=== PATIENT | female | born 1990 | race Caucasian/White ===

== ENCOUNTER 2017-03-14 20:43 | Inpatient (IN) | payer OTHER ==
[2017-03-14 21:12] VITALS: BMI 47.9
[2017-03-14 21:34] LABS: Amnisure Test RUPTURE DETECTED (No Rupture)
[2017-03-14 21:35] LABS: Amnisure Internal Control QC ACCEPTABLE (ACCEPTABLE)
[2017-03-14] MEDS ORDERED: Promethazine HCl 25 MG/ML VIAL IM PRN (22:35)
[2017-03-14] MEDS ORDERED: Ondansetron HCl/PF 4 MG/2 ML Vial IVP PRN (22:35)
[2017-03-14] MEDS: Dextrose 5%-Lactated Ringers 1,000 ML IV SCH (22:43)
[2017-03-14] MEDS ORDERED: Lidocaine 1% (PF) 30 ML VIAL SC PRN (22:45)
[2017-03-14] MEDS ORDERED: LR 500 ML/Oxytocin 10 units 500 ML IV SCH ×2 (22:45)
[2017-03-14 23:05] LABS: Hemoglobin 11.8 g/dL (12.0-16.0); Mean Corpuscular HGB CONC 33.4 g/dL (32.0-36.0); Mean Corpuscular Hemoglobin 27.3 pg (27.0-31.0); Mean Corpuscular Volume 81.6 fl (81.0-99.0); Mean Platelet Volume 7.6 fL (7.4-10.4); Platelet Count 320 thou/uL (130-400); RBC Distribution Width 13.9 % (11.5-14.5); Red Blood Cell (RBC) Count 4.35 mill/uL (4.20-5.40); White Blood Cell (WBC) Count 17.3 thou/uL (4.8-10.8)
[2017-03-14 23:43] LABS: HBSAg Index 0.24 S/CO (0-0.99); Hep B Surf Ag Non-Reactive S/CO (NonReactive); Syphilis Antibody Nonreactive (Nonreactive); Syphilis Antibody Index 0.04 S/CO (<1.00 Non-Reactive)
[2017-03-14] MEDS ORDERED: Fentanyl 4 mcg/Marc 0.1% Cadd 100 ML ONE (23:43)
[2017-03-15] MEDS: Dextrose 5%-Lactated Ringers 1,000 ML IV SCH (00:23)
[2017-03-15] MEDS ORDERED: LR / Pitocin 40 units/1000 ml 1,000 ML ONE (04:13)
[2017-03-15] MEDS ORDERED: LR / Pitocin 40 units/1000 ml 0 ML ONE (04:13)
[2017-03-15] MEDS ORDERED: Lidocaine 1% (PF) 30 ML VIAL ONE (04:13)
[2017-03-15] MEDS ORDERED: Acetaminophen/Codeine 30-300mg Tablet PO PRN ×2 (05:49)
[2017-03-15] MEDS ORDERED: Ondansetron HCl/PF 4 MG/2 ML Vial IVP PRN ×2 (05:49→06:00)
[2017-03-15] MEDS ORDERED: Adacel (T-DAP) 0.5 ML VIAL IM ONE (05:49)
[2017-03-15] MEDS ORDERED: Zolpidem Tartrate 5 MG TAB PO PRN (05:49)
[2017-03-15] MEDS ORDERED: Benzocaine/Menthol 20-0.5% 60 ML CAN TOP PRN (05:49)
[2017-03-15] MEDS ORDERED: Lanolin Ointment 7 GM TUBE TOP PRN (05:49)
[2017-03-15] MEDS ORDERED: diphenhydrAMINE 25 MG CAP PO PRN (05:49)
[2017-03-15] MEDS ORDERED: Preparation H Ointment 28 GM TUBE PR PRN (05:49)
[2017-03-15] MEDS ORDERED: Bisacodyl 10 MG SUPP PR PRN (05:49)
[2017-03-15] MEDS ORDERED: Milk Of Magnesia 30 ML UDCUP PO PRN (05:49)
[2017-03-15] MEDS ORDERED: Acetaminophen 325 MG TAB PO PRN (06:00)
[2017-03-15] MEDS ORDERED: Eucerin (Mineral Oil/Petrolatum,White) 30 gm Jar TOP PRN (06:00)
[2017-03-15] MEDS ORDERED: diphenhydrAMINE 50 MG/ML VIAL IVP PRN (06:00)
[2017-03-15] MEDS ORDERED: Promethazine HCl 25 MG/ML VIAL IM PRN (06:00)
[2017-03-15] MEDS ORDERED: ePHEDrine/0.9% NaCl/PF SYRINGE 50 mg/10 ml SLOW IVP PRN (06:00)
[2017-03-15] MEDS ORDERED: Lactated Ringer's 500 ML IV PRN (06:00)
[2017-03-15] MEDS ORDERED: Fentanyl 4mcg/Marcaine 0.1% Cassette 100 ML EPIDURAL SCH (06:00)
[2017-03-15] MEDS ORDERED: Communication Order-Pharmacy FS SCH (06:00)
[2017-03-15] MEDS ORDERED: LR / Pitocin 40 units/1000 ml 1,000 ML IV SCH (06:00)
[2017-03-15] MEDS ORDERED: Naloxone HCl 0.4 mg/ml Vial IVP PRN ×2 (06:00)
[2017-03-15] MEDS: Ferrous Sulfate 325 MG TAB PO SCH ×2 (08:18→17:17)
[2017-03-15] MEDS: Docusate Calcium (SURFAK) 240 MG CAP PO SCH ×2 (08:24→21:57)
[2017-03-15] MEDS: Prenatal Vitamin 1 TAB PO SCH (08:24)
[2017-03-15] MEDS: Ibuprofen 800 MG TAB PO SCH ×3 (08:24→21:58)
[2017-03-16] MEDS: Ibuprofen 800 MG TAB PO SCH ×2 (06:20→14:45)
[2017-03-16 06:37] LABS: Hemoglobin 9.9 g/dL (12.0-16.0); Mean Corpuscular HGB CONC 33.3 g/dL (32.0-36.0); Mean Corpuscular Hemoglobin 27.5 pg (27.0-31.0); Mean Corpuscular Volume 82.7 fl (81.0-99.0); Mean Platelet Volume 7.8 fL (7.4-10.4); Platelet Count 260 thou/uL (130-400); RBC Distribution Width 14.2 % (11.5-14.5); Red Blood Cell (RBC) Count 3.59 mill/uL (4.20-5.40); White Blood Cell (WBC) Count 12.2 thou/uL (4.8-10.8)
[2017-03-16] MEDS: Ferrous Sulfate 325 MG TAB PO SCH ×2 (07:41→08:51)
[2017-03-16] MEDS: Docusate Calcium (SURFAK) 240 MG CAP PO SCH (08:50)
[2017-03-16] MEDS: Prenatal Vitamin 1 TAB PO SCH (08:50)
[2017-03-16 11:21] VITALS: BP 135/64; TEMP 97.6
== END 2017-03-16 16:45 | disposition home or self-care (01) | DRG 775 ==
LOC: L&D/OP 20:43 → L&D 22:36 → 3SW 03-15 08:01
PROVIDERS: ADMIT Obstetrics & Gynecology; ATTEND Obstetrics & Gynecology
PROC: 10E0XZZ Delivery of Products of Conception, External Approach (ICD-10-PCS; principal; 2017-03-15)
DX: O24.429 Gestational diabetes mellitus in childbirth, unspecified control (principal); Z37.0 Single live birth; Z3A.39 39 weeks gestation of pregnancy; Z79.84 Long term (current) use of oral hypoglycemic drugs
CPT/HCPCS: 36415; 51702; 84112; 85027; 86780; 87340; 99285; J2001; J2405

== ENCOUNTER 2018-07-01 09:41 | Day surgery (SDC) | payer OTHER ==
[2018-06-30 11:48] VITALS: BMI 46.3
[2018-07-01] MEDS ORDERED: CEFAZOLIN 1 GM VIAL ONE (10:02)
[2018-07-01] MEDS ORDERED: Sodium Chloride 0.9% 100 ML ONE (10:02)
[2018-07-01 10:37] LABS: Bilirubin Negative (Negative); Blood, Urine Negative (Negative); Clarity CLOUDY (Clear); Glucose, Urine (Dipstick) Negative (Negative); Leukocyte Moderate (Negative); Nitrite Negative (Negative); Protein, Urine (Dipstick) Negative (Neg-Trace); Specific Gravity, Urine 1.012 (1.002-1.036); Urobilinogen 0.2 mg/dL (0.2-1.0); pH, Urine 6.5 (5.0-9.0)
[2018-07-01 10:38] LABS: Bacteria/HPF 1+ HPF (None Seen); Hyaline Casts/LPF 0-3 HYALINE CAST LPF (0-3 Hyaline); Pathc Cast-AUWi Flag 0.13 (0-2.49)
[2018-07-01 10:39] LABS: RBC/HPF None Seen HPF (0-3)
[2018-07-01 10:40] LABS: #Basophils 0.1 thou/uL (0.0-0.2); #Eosinphils 0.3 thou/uL (0.0-0.7); #Lymphocytes 3.1 thou/uL (1.20-3.40); #Monocytes 0.7 thou/uL (0.11-0.59); #Neutrophils 5.5 thou/uL (1.40-6.50); %Basophils 0.8 % (0.0-1.0); %Eosinophils 2.7 % (0.0-10.0); %Monocytes 7.6 % (0.0-10.0); %Neutrophils 56.9 % (42.0-75.0); Hemoglobin 11.8 g/dL (12.0-16.0); Mean Corpuscular Volume 78.1 fL (78.0-98.0); Platelet Count 343 thou/uL (130-400); White Blood Cell (WBC) Count 9.6 thou/uL (4.8-10.8)
[2018-07-01 10:41] LABS: Urine Culture Reflex No No
[2018-07-01 10:43] LABS: BHCG - Serum Negative (NEGATIVE); Pregs Control Background? CLEAR/WHITE (CLR/WHITE); Pregs Control Bar Appear? YES (CONTROL BAR)
[2018-07-01] MEDS ORDERED: Ferric Subsulfate 8 ML BOT ONE (11:36)
[2018-07-01] MEDS ORDERED: Midazolam HCl 2 mg/2 ml Vial ONE (12:01)
[2018-07-01] MEDS ORDERED: Fentanyl 100 MCG/2 ML VIAL ONE (12:01)
--- NOTE | 2018-07-01 14:26 | OP ---
DATE OF PROCEDURE: 07/01/2018 PREOPERATIVE DIAGNOSES: 1. Abnormal Pap smear (ASCUS). 2. High-grade dysplasia (HSIL). 3. 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 POSTOPERATIVE DIAGNOSES: 1. Abnormal Pap smear (ASCUS). 2. High-grade dysplasia (HSIL). 3. 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 PROCEDURE PERFORMED: Loop electrosurgical excision procedure (LEEP). ANESTHESIA: General (LMA). FINDINGS: 1. Abnormal Pap - ASCUS cannot rule out high-grade dysplasia. 2. Biopsy-proven dysplasia (HSIL) at 12 o'clock. 3. Negative ECC. 4. Large patulous cervix. COMPLICATIONS: None. SPECIMENS REMOVED: Cervical cone in 3 specimens - superior quadrant, endocervix, and then inferior quadrant. BLOOD LOSS: Minimal. DESCRIPTION OF PROCEDURE: After thorough consent and counseling, Ms. Samayoa was taken to the operating room and adequate level of anesthesia was obtained via laryngeal mask anesthesia (LMA). The patient was placed in the Virgil stirrups in the low leg position. Examination under anesthesia was performed. Findings were consistent with that in the clinical setting. The patient was noted to have a very large patulous cervix, which was grossly normal in appearance. The patient was prepped and draped in usual sterile fashion for vaginal surgery. In-and-out catheterization of bladder was performed, which draining clear urine. Attention was then turned to performing the outlined surgical procedure. An insulated speculum was placed in the vaginal canal. Visualization of the cervix was obtained. Lugol solution was applied to the cervix to identify the nonstaining dysplastic areas. The only nonstaining area was from 11 o'clock to 1 o'clock along the superior margin of the squamocolumnar junction. Loop electrosurgical excision performed (LEEP) was performed in several different segments because of the size of the cervix. There were 3 specimens taken. The transitional zone was removed in the superior quadrant. The endocervical canal was removed in the middle quadrant and the inferior margin was taken separately. Ball cautery of the LEEP bed was then performed. The patient tolerated the procedure well. There was minimal bleeding. The specimens were individually labeled and sent to Pathology for evaluation. The instruments were removed from the vagina. Good hemostasis was appreciated. Lugol solution was applied to the cervix. Lap, sponge, and needle counts were correct x3. Blood loss was minimal. Job ID: [id number]
[2018-07-01] MEDS ORDERED: PROPOFOL 200 MG/20 ML VIAL ONE (16:28)
== END 2018-07-01 14:30 | disposition home or self-care (01) ==
LOC: SDC 09:41
PROVIDERS: ATTEND Obstetrics & Gynecology
PROC: 0UBC7ZZ Excision of Cervix, Via Natural or Artificial Opening (ICD-10-PCS; principal; 2018-07-01)
DX: R87.613 High grade squamous intraepithelial lesion on cytologic smear of cervix (HGSIL) (principal); A63.0 Anogenital (venereal) warts; F41.9 Anxiety disorder, unspecified; E66.9 Obesity, unspecified; Z68.42 Body mass index [BMI] 45.0-49.9, adult; Z79.899 Other long term (current) drug therapy
CPT/HCPCS: 81001; 84703; 85025; 88307; J0690; J2250; J2704; J3010; J3490

== ENCOUNTER 2018-08-15 08:53 | Outpatient (CLI) | payer OTHER | END 2018-08-15 08:54 | disposition home or self-care (01) | LOC: DTY/OP 08:53 | PROVIDERS: ATTEND Surgery | DX: E66.01 Morbid (severe) obesity due to excess calories (principal) | CPT/HCPCS: 97802 ==

== ENCOUNTER 2018-09-26 08:54 | Outpatient (CLI) | payer OTHER | END 2018-09-26 08:55 | disposition home or self-care (01) | LOC: DTY/OP 08:54 | PROVIDERS: ATTEND Surgery | DX: E66.01 Morbid (severe) obesity due to excess calories (principal) | CPT/HCPCS: 97802 ==

== ENCOUNTER 2018-10-26 08:53 | Outpatient (CLI) | payer OTHER | END 2018-10-26 08:54 | disposition home or self-care (01) | LOC: DTY/OP 08:53 | PROVIDERS: ATTEND Family Medicine | DX: E66.01 Morbid (severe) obesity due to excess calories (principal) | CPT/HCPCS: 97802 ==

== ENCOUNTER 2018-11-29 13:43 | Outpatient (CLI) | payer OTHER | END 2018-11-29 13:44 | disposition home or self-care (01) | LOC: DTY/OP 13:43 | PROVIDERS: ATTEND Family Medicine | DX: E66.01 Morbid (severe) obesity due to excess calories (principal) | CPT/HCPCS: 97802 ==